=== PATIENT | female | born 2000 | race Caucasian/White ===

== ENCOUNTER 2024-02-27 13:14 | Emergency (ER) | payer BC, SELFPAY ==
[2024-02-27 13:19] VITALS: BP 155/67
--- NOTE | 2024-02-27 13:59 | ED.GENMED ---
History of Present Illness
<Mariya Palmer PA-C - Last Filed: 02/29/24 01:23>
General
Chief Complaint: Eye Problems
Source: patient
Exam Limitations: none
Time Seen by Provider: 02/27/24 13:53
Nursing documentation reviewed up to this point in time: agreed with
History of Present Illness
History of Present Illness:
Patient is a 23-year-old female presenting to the emergency department for evaluation of right upper eyelid swelling. Symptoms initially started yesterday morning when she woke up and had pain and swelling of her right upper eyelid. When she woke
this morning�pain and swelling of her right upper lid seemed worse prompting her visit to the emergency department. Patient does note a mild headache, as well. Patient denies any fever, chills, changes in her vision including blurry or double
vision. Patient denies any significant eye pain and states that most of her pain seems localized to her eyelid.
Patient is a contact lens wearer although she has not worn contact since onset of symptoms.
Patient states that the night prior to onset of symptoms she did apply fake eyelashes and then used a lot in the micellar water to remove her make-up.
Review of Systems
<Mariya Palmer PA-C - Last Filed: 02/29/24 01:23>
Review of Systems
Allergies reviewed?: Yes
All Other Systems: ROS reviewed and negative except as documented in HPI and ROS
Phy Exam
<Mariya Palmer PA-C - Last Filed: 02/29/24 01:23>
Physical Exam
Physical Exam:
Vitals: Mildly hypertensive, otherwise vital signs stable. Afebrile
General: Patient is well appearing, no acute distress
Skin: Warm and dry, no rashes or lesions
Head: Normocephalic, atraumatic
Eyes: Erythema and swelling of right upper eyelid no significant round lid margin. Right sclera clear without any drainage. Pupils equal round and reactive to light bilaterally. EOMs intact without pain. No nystagmus. No tenderness to sinuses.
Throat: Protecting airway
Neck: Normal ROM, no cervical spine tenderness, no meningismus
Cardiac: Regular rate and rhythm, no murmurs.
Pulm: Normal respiratory effort, no wheezes, rales, rhonchi heard on exam.
Abdomen: No abdominal tenderness.
Extremities: No evidence of cyanosis or edema
Neuro: AAOx3. CN II-XII intact. No focal neurologic deficits.
Psychiatric: Normal affect.
Course
<Mariya Palmer PA-C - Last Filed: 02/29/24 01:23>
Orders/Labs/Results
Orders:
Orders
02/27/24 15:04
Ibuprofen [Motrin] 400 mg PO NOW STA
02/27/24 15:22
Amoxicillin 875 mg/Clav 125 mg [Augmentin 875 mg/125 mg] 1 tablet PO NOW STA
Vital Signs
Initial and Last Documented VS:
Initial Vital Signs
Temp Pulse Resp BP Pulse Ox
98.3 F 91 16 155/67 98
02/27/24 13:19 02/27/24 13:19 02/27/24 13:19 02/27/24 13:19 02/27/24 13:19
Last Documented Vital Signs
Temp Pulse Resp BP Pulse Ox
98.3 F 88 18 150/60 98
02/27/24 13:19 02/27/24 15:38 02/27/24 15:38 02/27/24 15:38 02/27/24 15:38
<Rick Fernandez DO - Last Filed: 02/27/24 15:33>
Orders/Labs/Results
Orders:
Orders
02/27/24 15:04
Ibuprofen [Motrin] 400 mg PO NOW STA
02/27/24 15:22
Amoxicillin 875 mg/Clav 125 mg [Augmentin 875 mg/125 mg] 1 tablet PO NOW STA
Vital Signs
Initial and Last Documented VS:
Initial Vital Signs
Temp Pulse Resp BP Pulse Ox
98.3 F 91 16 155/67 98
02/27/24 13:19 02/27/24 13:19 02/27/24 13:19 02/27/24 13:19 02/27/24 13:19
Last Documented Vital Signs
Temp Pulse Resp BP Pulse Ox
98.3 F 88 18 150/60 98
02/27/24 13:19 02/27/24 15:38 02/27/24 15:38 02/27/24 15:38 02/27/24 15:38
<Mariya Palmer PA-C - Last Filed: 02/29/24 01:23>
MDM/Problems Addressed
Differential Diagnosis Includes:
Not limited to: Blepharitis, preseptal cellulitis, hordeolum, orbital cellulitis, etc.
MDM/Problems Addressed:
23-year-old female with erythema, swelling, and pain to right upper eyelid for the past 2 days. No changes in vision, fever, orbital pain. No severe headache. Patient mildly hypertensive, otherwise has stable vital signs. She is afebrile. On
exam�patient has clear swelling and erythema to right upper lid most notable near lid margin. Extraocular motion completely intact without pain. Right sclera clear without ocular drainage. No tenderness to sinuses. Patient is afebrile with no
evidence of systemic infection. Exam most consistent with a likely blepharitis versus possible early preseptal cellulitis. No indication of orbital cellulitis. No indication for orbit CT at this time. Will start course of Augmentin to cover
possible early preseptal cellulitis component and topical antibiotic ointment. Will recommend warm compresses. Close return precautions discussed including any worsening in symptoms, fever or changes in vision. Patient comfortable with plan.
Patient stable for discharge. Patient seen with attending physician.
Chronic conditions affecting care:
N/A
Acute Exacerbation and/or Progression of Chronic Illness:
N/A
<Mariya Palmer PA-C - Last Filed: 02/29/24 01:23>
*Pulse Oximetry
Patient hypoxic: no
*EKG
Interpreted by ED Provider?: NA
*Archives Director Interpretation
Rate: Archives Director- N/A
*Critical Care Note
Total Time (30-74mins, 75-104mins- exclusive of procedures): Not Applicable
ED Attending Note
<Mariya Palmer PA-C - Last Filed: 02/29/24 01:23>
-
Portions of this chart may have been created with voice recognition software.� Occasional wrong word or��sound alike� substitutions may have occurred due to the inherent limitations of voice recognition software.
<Rick Fernandez DO - Last Filed: 02/27/24 15:33>
ED Attending Note
Patient seen and examined by attending physician: Yes
I performed the substantive portion of visit, reviewed & personally made and approve the management plan that is documented in note by myself or MOSHE.: Yes
Discharge Plan
Departure
Patient Disposition: Home (Routine Discharge)
Date of Disposition: 02/27/24
Time of Disposition: 15:18
Patient with high blood pressure during this ER visit?: Yes
Condition: Good
Covid-19: Not Applicable
Discharge Problem:
Blepharitis of right upper eyelid
Instructions: Blepharitis, Preseptal Cellulitis ED, BLOOD PRESSURE
Prescriptions:
New
amoxicillin-pot clavulanate 875-125 mg tablet
1 tab PO BID 7 Days Qty: 14 0RF
sulfacetamide sodium 10 % ointment
1 applic ophthalmic (eye) Q4H 7 Days Qty: 3.5 0RF
No Action
fexofenadine [Melissa] 180 MG tablet
180 mg PO DAILY PRN (Reason: allergy symptoms)
mexiletine 150 MG capsule
150 mg PO BID
propranolol [Inderal XL] 80 MG capsule,extended release 24hr
80 mg PO DAILY
sucralfate 1 GM/10 ML suspension
1 gm PO QID 7 Days 0RF
pantoprazole 40 MG tablet,delayed release (DR/EC)
40 mg PO DAILY Qty: 30 0RF
Rx Instructions:
Take 30 minutes prior to breakfast
Referrals:
Marsha Paiz MD [Family Provider] - Follow up in 1 week
Activity Restrictions/Additional Instructions:
RETURN TO THE EMERGENCY DEPARTMENT WITH SEVERE HEADACHE, CHANGES IN VISION, WORSENING IN SWELLING/REDNESS OF RIGHT EYE, FEVERS, OR ANY OTHER CONCERNS
-2 prescriptions were sent to the pharmacy. You should take the oral antibiotic twice a day for the next week. You should apply the topical ointment to the affected eye as directed.
-As discussed�it is important to frequently apply warm compresses to affected eye
-Continue to take Motrin/Tylenol as needed for headache.
-Follow-up with primary care as needed for further evaluation/management
Monitor your symptoms closely return to the emergency department with any acute worsening/new symptoms or any other concerns
Interventions
Interventions:
*Risk Screen - Suicide Last Done: 02/27/24 13:19
*General Assessment Last Done: 02/27/24 13:43
*Neglect/Abuse Screening Last Done: 02/27/24 13:19
*ED COVID-19 Vaccine History Last Done: 02/27/24 13:43
*Nursing Disposition Last Done: 02/27/24 15:38
Discharge Date and Time
Discharge Date/Time: 02/27/24 15:41
Print Language: TURKISH
[2024-02-27] MEDS: MOTRIN 400 MG PO (15:16)
[2024-02-27] MEDS: AUGMENTIN 875 MG/125 MG 1 TABLET PO (15:29)
[2024-02-27 15:38] VITALS: BP 150/60
== END 2024-02-27 15:41 | disposition home or self-care (01) ==
LOC: EMR 13:14
PROVIDERS: EMERGENCY PHYSICIAN Emergency Medicine; FAMILY PHYSICIAN Internal Medicine
DX: H01.001 Unspecified blepharitis right upper eyelid (principal); R03.0 Elevated blood-pressure reading, without diagnosis of hypertension
CPT/HCPCS: 99283